=== PATIENT | female | born 1995 | race Caucasian/White ===

== ENCOUNTER 2016-05-13 17:21 | Emergency (ER) | payer OTHER ==
[~2016-05-13 17:21] MED LIST: IBUPROFEN600 MG PO
[2016-05-13 19:23] LABS: HEMOGLOBIN 13.5 gm/dl (12.3-15.3); RED BLOOD COUNT 5.3 M/UL (4.00-5.10); WHITE BLOOD COUNT 6.7 K/UL (4.5-11.0)
[2016-05-13 19:32] LABS: BUN/CREATININE RATIO 13 (0-10)
== END 2016-05-13 21:00 | disposition home or self-care (01) ==
LOC: ER1 17:21
PROVIDERS: Physician Assistant Medical
DX: E86.0 Dehydration (principal); B34.9 Viral infection, unspecified; Z88.0 Allergy status to penicillin; Z88.5 Allergy status to narcotic agent
CPT/HCPCS: 36415; 80053; 81001; 82150; 83690; 84703; 85025; 87081; 87880; 99284; J7030

== ENCOUNTER 2016-05-26 00:11 | Emergency (ER) | payer OTHER | END 2016-05-26 03:42 | disposition left against medical advice (07) | LOC: ER1 00:11 | DX: Z53.21 Procedure and treatment not carried out due to patient leaving prior to being seen by health care provider (principal) ==

== ENCOUNTER 2016-05-30 00:04 | Emergency (ER) | payer OTHER | END 2016-05-30 02:58 | disposition home or self-care (01) | LOC: ER1 00:04 | DX: Z53.21 Procedure and treatment not carried out due to patient leaving prior to being seen by health care provider (principal) ==

== ENCOUNTER 2016-06-01 21:01 | Emergency (ER) | payer OTHER ==
[2016-06-02 00:47] LABS: HEMOGLOBIN 12.7 gm/dl (12.3-15.3); RED BLOOD COUNT 4.91 M/UL (4.00-5.10); WHITE BLOOD COUNT 5.1 K/UL (4.5-11.0)
[2016-06-02 01:07] LABS: BUN/CREATININE RATIO 18 (0-10)
== END 2016-06-02 04:20 | disposition home or self-care (01) ==
LOC: ER1 21:01
PROVIDERS: Physician Assistant
DX: N39.0 Urinary tract infection, site not specified (principal); J02.9 Acute pharyngitis, unspecified; Z88.0 Allergy status to penicillin; Z88.5 Allergy status to narcotic agent
CPT/HCPCS: 36415; 80053; 81001; 83690; 84703; 85025; 87077; 87081; 87086; 87186; 87210; 87880; 96361; 96365; 99284; J0696; J7030; J7050

== ENCOUNTER 2016-06-17 02:45 | Emergency (ER) | payer OTHER | END 2016-06-17 04:56 | disposition home or self-care (01) | LOC: ER1 02:45 | DX: B88.0 Other acariasis (principal); Z88.0 Allergy status to penicillin; Z88.5 Allergy status to narcotic agent; Z91.040 Latex allergy status | CPT/HCPCS: 96372; 99282; J1100 ==

== ENCOUNTER 2016-07-07 18:31 | Emergency (ER) | payer OTHER ==
[2016-07-07 21:09] LABS: HEMOGLOBIN 12.6 gm/dl (12.3-15.3); RED BLOOD COUNT 4.76 M/UL (4.00-5.10); WHITE BLOOD COUNT 8.5 K/UL (4.5-11.0)
[2016-07-07 21:23] LABS: BUN/CREATININE RATIO 10 (0-10)
== END 2016-07-08 00:35 | disposition home or self-care (01) ==
LOC: ER1 18:31
PROVIDERS: Family Medicine
DX: O99.89 Other specified diseases and conditions complicating pregnancy, childbirth and the puerperium (principal); R10.2 Pelvic and perineal pain; Z88.0 Allergy status to penicillin; Z91.040 Latex allergy status; Z88.5 Allergy status to narcotic agent; Z3A.00 Weeks of gestation of pregnancy not specified
CPT/HCPCS: 36415; 76817; 80053; 81001; 82150; 83690; 84702; 84703; 85025; 96361; 96374; 96375; 99284; J0696; J2765; J7050

== ENCOUNTER → 2020-08-01 | Outpatient (CLI) | payer OTHER ==
[~2020-08-01] MED LIST changes: +BACTRIM DS TAB1 EACH PO; +MACROBID 100 M100 MG PO; +PYRIDIUM200 MG PO
== END ==
LOC: RAD 12:36
DX: M25.512 Pain in left shoulder (principal)
CPT/HCPCS: 73030

== ENCOUNTER 2020-08-03 01:12 | Emergency (ER) | payer OTHER ==
[~2020-08-03 01:12] MED LIST changes: -BACTRIM DS TAB1 EACH PO
[2020-08-03 03:03] LABS: HEMOGLOBIN 13.2 gm/dl (12.3-15.3); RED BLOOD COUNT 4.59 M/UL (4.00-5.10); WHITE BLOOD COUNT 11.1 K/UL (4.5-11.0)
[2020-08-03 03:26] LABS: BUN/CREATININE RATIO 17 (0-10)
[2020-08-03] MEDS ORDERED: BACTRIM DS TAB1 EACH PO (03:47)
== END 2020-08-03 04:00 | disposition home or self-care (01) ==
LOC: ER1 01:12
PROVIDERS: Physician Assistant
DX: L03.311 Cellulitis of abdominal wall (principal); E11.9 Type 2 diabetes mellitus without complications; E78.5 Hyperlipidemia, unspecified; I10 Essential (primary) hypertension; M19.90 Unspecified osteoarthritis, unspecified site; F17.290 Nicotine dependence, other tobacco product, uncomplicated; Z79.899 Other long term (current) drug therapy
CPT/HCPCS: 80053; 81001; 84703; 85025; 99284

== ENCOUNTER 2021-03-17 15:42 | Emergency (ER) | payer OTHER ==
[~2021-03-17 15:42] MED LIST changes: +BACTRIM DS TAB1 EACH PO
[2021-03-17 16:30] LABS: RED BLOOD COUNT 4.88 M/UL (4.00-5.10); WHITE BLOOD COUNT 7.7 K/UL (4.5-11.0)
[2021-03-17 17:01] LABS: BUN/CREATININE RATIO 14 (0-10)
== END 2021-03-17 20:27 | disposition home or self-care (01) ==
LOC: ER1 15:42
PROVIDERS: Physician Assistant
DX: R07.9 Chest pain, unspecified (principal); E11.9 Type 2 diabetes mellitus without complications; Z20.822 Contact with and (suspected) exposure to COVID-19; Z91.040 Latex allergy status; Z88.0 Allergy status to penicillin
CPT/HCPCS: 0240U; 71045; 80053; 82550; 82553; 83874; 83880; 84484; 84703; 85025; 93005; 99285

== ENCOUNTER → 2021-11-05 | Outpatient (CLI) | payer OTHER ==
[2021-11-05 09:57] LABS: HEMOGLOBIN 13.4 gm/dl (12.3-15.3); RED BLOOD COUNT 4.67 M/UL (4.00-5.10); WHITE BLOOD COUNT 7.2 K/UL (4.5-11.0)
[2021-11-05 10:20] LABS: BUN/CREATININE RATIO 20 (0-10)
== END ==
LOC: LAB 09:21
PROVIDERS: Physician Assistant
DX: M25.512 Pain in left shoulder (principal); R53.83 Other fatigue; E28.2 Polycystic ovarian syndrome; E66.9 Obesity, unspecified
CPT/HCPCS: 36415; 73030; 80053; 80061; 82607; 83036; 84439; 84443; 84703; 85025